=== PATIENT | male | born 1980 | race Caucasian/White ===

== ENCOUNTER 2018-03-30 22:27 | Emergency (ER) | payer OTHER, SELFPAY ==
[2018-03-30 22:29] VITALS: BP 136/89; PULSE 84; PULSE 85; RESP 17; TEMP 35.9; O2SAT 97; BMI 30.5
--- NOTE | 2018-03-30 22:40 | RAD_ITS ---
STUDY: X-RAY - RIGHT HAND REASON FOR EXAM: Male, 37 years old. Patient fell from ladder today. Second digit pain. TECHNIQUE: 3 view(s) of the hand. COMPARISON: None. FINDINGS: Normal radiocarpal articulation. Normal distal radioulnar joint. Normal visualized carpal bones. Normal carpal articulations Normal carpometacarpal articulation of the thumb. Normal second through fifth carpometacarpal joints. Normal metacarpi. Normal metacarpophalangeal joint of the thumb. Normal interphalangeal joint of the thumb. Normal proximal and distal phalanges of the thumb. Normal metacarpophalangeal joints of the second through fifth fingers. Normal proximal and distal interphalangeal joints of the second through fifth fingers. There is a nondisplaced fracture of the middle phalanx of the second finger. There is soft tissue swelling. RAD/Hand Min 3 Views IMPRESSION: Fracture of the middle phalanx of the second finger. Electronically Signed: Gianfranco Cook MD at 22:57 EDT Tel , Service support ,
--- NOTE | 2018-03-30 23:01 | ED.VISSUMM ---
- ER Visit Summary Date of Service: 03/30/18 Chief Complaint: Right hand pain History of Present Illness: The patient is a 37 M who fell off of a 6 foot ladder. He was carrying a piece of machinery when he lost his balance and fell off. He has pain to the right hand on the second finger as well as in the dorsal part of the hand. It is worse with movement. He denies any previous surgeries or fractures to that hand. He does admit to drinking 6 beers before doing this endeavor. He took no medications for this at home. His tetanus is up-to-date Physical Examination: Vital signs are reviewed. Right hand exam reveals tenderness diffusely on the second finger as well as on the metacarpal area of the second and third digit. He has an abrasion to the right thumb. He also has an abrasion to the left tib-fib area Test Results: X-rays reveal a fracture of the second middle phalanx Emergency Department Course and Treatment: Patient was given naproxen. He will be placed in an AlumaFoam splint. I will give him a couple of Melvin for home. He will ice and elevate. Follow-up with PCP Treatment Plan: [] Disposition: Discharge Impression: Right second middle phalanx fracture This note was generated with [employer] dictation software. It may contain incorrect words, spelling, and punctuation that were not noted in review of the chart prior to signing ED Disposition - Plan for ED Patient: Chief Complaint: Upper Extremity Injury Referrals: Willie Pickens MD [Primary Care Provider] -
--- NOTE | 2018-03-30 23:04 | DCINST.ED_ITS ---
ED Disposition - Plan for ED Patient: Disposition: Home or Assisted Living Chief Complaint: Upper Extremity Injury Instructions: ED Fx Finger Closed Prescriptions: Hydrocodone Bitart/Apap 5-325 [[place] 5MG-325MG] 1 tab PO Q6H PRN PRN 3 Days #8 tab PRN Reason: Pain Referrals: Willie Pickens MD [Primary Care Provider] -
[2018-03-30 23:14] VITALS: RESP 18
--- NOTE | 2018-03-30 23:14 | ED.RN ---
REVIEWED D/C INSTRUCTIONS, FOLLOW UP CARE, PRESCRIPTION, AND S/S THAT WOULD WARRANT A RETURN TO THE ED WITH PT. PT VERBALIZED AN UNDERSTANDING AND DENIES FURTHER QUESTIONS FOR THIS RN. PT SKIN P/W/D, RESP EVEN AND UNLABORED, PT A&O X 3, NO DISTRESS NOTED. PT AMBULATED OUT OF ED, GAIT STEADY.
== END 2018-03-30 23:16 | disposition home or self-care (01) ==
PROVIDERS: Emergency Provider Emergency Medicine; Family Provider Family Medicine; PCP Family Medicine
DX: S62.620A Displaced fracture of middle phalanx of right index finger, initial encounter for closed fracture (principal); Z72.0 Tobacco use; W11.XXXA Fall on and from ladder, initial encounter; Y93.89 Activity, other specified; Y92.89 Other specified places as the place of occurrence of the external cause; Y99.8 Other external cause status
CPT/HCPCS: 73130; 99282

== ENCOUNTER 2021-11-04 19:46 | Emergency (ER) | payer SELFPAY ==
[2021-11-04 19:47] VITALS: BP 172/101; PULSE 106; RESP 18; TEMP 36.4; O2SAT 97; BMI 30.1
[2021-11-04 20:24] LABS: Absolute Lymphocyte Count 2.08 X10^3/uL (0.83-4.51); Absolute Neutrophil Count 9.1 X10^3/uL (2.0-7.7); Basophil# 0.07 X10^3/uL; Basophil% 0.6 % (0-1); Eosinophil# 0.08 X10^3/uL; Eosinophils% 0.7 % (0-5); Hematocrit 43.9 % (40-54); Hemoglobin 14.8 g/dL (13.0-16.5); Lymphocyte # 2.08 X10^3/ul (0.83-4.51); Lymphocyte % 17.1 % (19-41); Mean Corp Hgb Conc 33.7 g/dL (32-36); Mean Corpuscular Hgb 30.1 pg (27.0-32.0); Mean Corpuscular Volume 89.4 fL (80-94); Mean Platelet Vol. 8.6 fl (6.2-12.0); Monocyte# 0.83 X10^3/uL; Monocyte% 6.8 % (0-10); NRBC Flagged by Analyzer 0 % (0-5); Neutrophil # 9.08 X10^3/uL (2.7-7.7); Neutrophil % 74.6 % (47-70); Platelet Count 278 K/mm3 (150-450); RBC Distribution Width CV 12.2 % (11.6-14.6); RBC Distribution Width SD 40.2 fl (35.1-43.9); Red Blood Count 4.91 M/mm3 (4.6-6.2); White Blood Count 12.2 K/mm3 (4.4-11.0)
--- NOTE | 2021-11-04 20:29 | CM.ED ---
Addendum entered by Jaymie Odonnell 11/04/21 22:22: Crisis will be called to complete MH assessment for patient. Jaymie JACKSON Original Note: Per HRO De patient has no insurance. He is from [place] and came back to [place] for his dad's . Jyamie JACKSON
[2021-11-04 20:42] LABS: ALB/GLOB Ratio 1.1 RATIO (0.9-2.4); AST(SGOT) 33 U/L (15-37); Alanine Aminotransfer ALT/SGPT 38 U/L (16-61); Albumin, Serum 4.1 g/dL (3.2-5.0); Alkaline Phosphatase 73 U/L (45-117); Anion Gap 11 (5-15); BUN 9 mg/dL (7-18); BUN/Creat Ratio 14.2 RATIO (10-20); Chloride 101 mmol/L (98-107); Creatinine, Serum 0.64 mg/dL (0.70-1.30); EST Glomerular Filtration Rate 148 mL/min (>60); Est Glom Filt Rate - Afr Amer 179 mL/min (>60); Estimated Creatinine Clearance 158.42 ml/min; Globulin 3.8 g/dL (2.2-4.2); Glucose 106 mg/dL (74-106); Potassium 3.7 mmol/L (3.5-5.1); Protein, Total 7.9 g/dL (6.4-8.2); Sodium Level 136 mmol/L (136-145)
[2021-11-04 20:46] LABS: Amphetamine Urine VISTA NEGATIVE (<1000 ng/mL); Barbiturate Urine VISTA NEGATIVE (< 200 ng/mL); Benzodiazepine Urine VISTA NEGATIVE (< 200 ng/mL); Cocaine Urine VISTA NEGATIVE (< 300 ng/mL); Ecstacy Urine VISTA NEGATIVE (< 500 ng/mL); Methadone Urine VISTA NEGATIVE (< 300 ng/mL); PCP Urine VISTA NEGATIVE (< 25 ng/mL); THC Urine VISTA POSITIVE (< 50 ng/mL); Vista UDS pH Range 5
--- NOTE | 2021-11-04 21:23 | ED.RN ---
patient had belongings locked up. envelope number # [id number]
--- NOTE | 2021-11-04 22:01 | ED.RN ---
Pt keeps yelling out of his room for the doctor. Pt getting agitated and is now requesting to leave. Pt educated that he is pink slipped. Pt becomes more angry. Pt starts calling attorneys on his phone.
--- NOTE | 2021-11-04 22:19 | ED.RN ---
Pt now on the phone with electronic tech. Pt yelling that he wants Benadryl. Requesting 100mg in a shot. Dr Hollins at bedside.
--- NOTE | 2021-11-04 22:36 | ED.RN ---
patient becoming verbally aggressive towards staff and pacing in the room. demanding to speak ot the doctor. patient advised the ER is very busy and the doctor will be in to see him as soon as possible. Nursing staff and HRO at bedside. Patient demanding to have credit out of locked belongings in order to speak to his csr. advised patient that once the items are removed from the safe the items will not be placed back in it. they will be locked int he tot is the rest of his clothing. patient demands that the items be removed. and his credit card be given to him. Patient advised that he is currently pink slipped and that legal consul will not be able to revoke the pink slip. patient still wants to speak to them. Items removed from the safe and given to patient and items placed in tot. HRO remains at the bedside. patient on the phone with csr at this time.
--- NOTE | 2021-11-04 22:38 | ED.RN ---
Pt instructed he will not get his medication or the sandwich he asked for until he is off the phone and back in bed. Pt refuses then shuts the door. Pt pacing in the room still talking on the phone.
[2021-11-04] MEDS: DiphenhydrAMINE 50 MG/ML Syringe IM (22:42)
--- NOTE | 2021-11-04 22:42 | ED.RN ---
pt now refusing the food this RN offer. Pt states i dont eat shit food you will just find me passed out in a coma.
[2021-11-05] VITALS: RESP 18
--- NOTE | 2021-11-05 00:03 | ED.RN ---
Pt keeps asking HRO to take him to [facility]. Pt explained at length that he is pink slipped to the ED and has to stay until he is legally sober to talk to a crisis counselor.
[2021-11-05] MEDS: Ziprasidone IM 20 MG/ML VIAL IM (00:14)
--- NOTE | 2021-11-05 00:15 | ED.RN ---
Pt screaming and yelling in the room i dont want to be here. Dr Hollins notified.
[2021-11-05 02:08] VITALS: RESP 16
[2021-11-05 04:50] VITALS: BP 120/86; PULSE 86; RESP 16; O2SAT 98
--- NOTE | 2021-11-05 05:28 | EDS_ITS ---
HPI History of Present Illness Chief Complaint: Suicidal Narrative Narrative: Patient is a 41-year-old male who is in town from [place]. He was brought into the hospital on a pink slip. Reportedly the patient sent a text message to his cousin which indicated that the cousin should tell his mother that she will find him [place]. Reportedly the subject left home and was unable to be located. Please were able to get the patient on the phone but he refused to give his location and at that point refused to answer questions regarding the reported text message with suicidal ideation. Eventually the subject was found at a hotel but refused to come out and also refused to answer questions still. Once police were able to reach the patient they found alcohol as well as to guns present in the room and with this reported suicidal ideation with attempt and access to weapons he was brought to the hospital for evaluation. Upon arrival to the hospital the patient is still refusing to answer questions regarding his reported suicidal ideation and exposure to weapons PFSH PFS Medical History unable to obtain unable to obtain Home Medications NK 11/04/21 [History Last Taken Unknown] Allergy/AdvReac Type Severity Reaction Status Date / Time No Known Allergies Allergy Verified 11/04/21 19:50 Surgical History unable to obtain Social History Smoking Status: Unknown if ever smoked ROS ROS ED Constitutional Constitutional ED: Denies chills or fever(s) ENT ENT ED: Denies sore throat Cardiovascular Cardiovascular: Denies chest pain Respiratory/Chest Respiratory/Chest: Denies cough or dyspnea Gastrointestinal Gastrointestinal: Denies abdominal pain, diarrhea, nausea or vomiting Genitourinary Genitourinary ED: Denies dysuria Musculoskeletal Musculoskeletal: Denies myalgias Integumentary Denies rash Neurologic Neurologic: Denies headache(s) Hematologic/Lymphatic Hematologic/Lymphatic: Denies easy bleeding or easy bruising EXAM Physical Exam Const Vital Signs: 11/04/21 19:47 11/05/21 00:00 11/05/21 02:08 Temperature 97.6 F L Temperature Source Temporal Pulse Rate 106 H Respiratory Rate 18 18 16 Blood Pressure 172/101 H Blood Pressure Mean 124 Pulse Ox 97 Oxygen Delivery Method Room Air Room Air 11/05/21 04:50 11/05/21 05:58 Temperature Temperature Source Pulse Rate 86 Respiratory Rate 16 14 Blood Pressure 120/86 H Blood Pressure Mean 97 Pulse Ox 98 Oxygen Delivery Method Room Air Positive well nourished and well developed General Appearance ED: well developed Eyes PERRL and EOMs intact bilaterally Neck supple Resp normal respiratory effort and clear to auscultation bilaterally Cardio regular rate and regular rhythm GI non-tender and non-distended Auscultation: normoactive bowel sounds Palpation: soft Extremity normal to inspection Neuro oriented x3 and CN's II-XII intact bilaterally Sensorium / Orientation: alert Psych mental status grossly normal Psych Narrative: Patient has a confrontational affect Skin no rashes or lesions noted MDM MDM MDM Narrative Medical decision making narrative: Patient presented to the ER awake and afebrile but was hypertensive and tachycardic most likely related to stress and anxiety. He is refusing to answer questions regarding the reported text message and access to guns. With the report from police and family basic blood work was obtained for psychiatric screening. Blood work revealed positive marijuana and elevated alcohol consistent with his history but otherwise no clinically significant findings. Based on the patient's pink slip as well as reported suicidal ideation with access to weapons he was watched in the ER and his alcohol level was rechecked and is now 49. At this time he is legally and medically sober and therefore will need to be evaluated by crisis center/social work because of the suicidal ideation. The patient was evaluated by crisis center now that he is legally and medically sober. He is denying any type of homicidal or suicidal ideation and states that his tax was misinterpreted. He also reports that his guns have been taken by police and he no longer has access to weapons. Therefore at this time as the reported/alleged suicidal ideation occurred while the patient was intoxicated and now he is sober and denying any type of homicidal or suicidal ideation I do not have grounds for placement and patient will be discharged at this time. Lab Data Attestation: I reviewed the patient's lab results. Labs: Laboratory Results - last 24 hr 11/04/21 11/04/21 11/04/21 19:57 20:15 20:15 WBC 12.2 H RBC 4.91 Hgb 14.8 Hct 43.9 MCV 89.4 MCH 30.1 MCHC 33.7 RDW Std Deviation 40.2 RDW Coeff of Joseph 12.2 Plt Count 278 MPV 8.6 Immature Gran % (Auto) 0.200 Neut % (Auto) 74.6 H Lymph % (Auto) 17.1 L [place] % (Auto) 6.8 Eos % (Auto) 0.7 Baso % (Auto) 0.6 Absolute Neuts (auto) 9.1 H Absolute Lymphs (auto) 2.08 Nucleated RBC % 0 Sodium 136 Potassium 3.7 Chloride 101 Carbon Dioxide 24.0 Anion Gap 11 BUN 9 Creatinine 0.64 L Estim Creat Clear Calc 158.42 Est GFR (MDRD) Af Amer 179 Est GFR (MDRD) Non-Af 148 BUN/Creatinine Ratio 14.2 Glucose 106 Calcium 9.0 Total Bilirubin 0.30 AST 33 ALT 38 Alkaline Phosphatase 73 Total Protein 7.9 Albumin 4.1 Globulin 3.8 Albumin/Globulin Ratio 1.1 Urine Opiates Screen NEGATIVE Urine Methadone Screen NEGATIVE Ur Barbiturates Screen NEGATIVE Ur Phencyclidine Scrn NEGATIVE Ur Amphetamines Screen NEGATIVE U Methamphetamin-MDMA NEGATIVE U Benzodiazepines Scrn NEGATIVE Urine Cocaine Screen NEGATIVE U Cannabinoids Screen POSITIVE H Ur Drug Screen Comment Ethyl Alcohol 11/04/21 11/05/21 20:15 04:20 WBC RBC Hgb Hct MCV MCH MCHC RDW Std Deviation RDW Coeff of Joseph Plt Count MPV Immature Gran % (Auto) Neut % (Auto) Lymph % (Auto) Mer[place]ether % (Auto) Eos % (Auto) Baso % (Auto) Absolute Neuts (auto) Absolute Lymphs (auto) Nucleated RBC % Sodium Potassium Chloride Carbon Dioxide Anion Gap BUN Creatinine Estim Creat Clear Calc Est GFR (MDRD) Af Amer Est GFR (MDRD) Non-Af BUN/Creatinine Ratio Glucose Calcium Total Bilirubin AST ALT Alkaline Phosphatase Total Protein Albumin Globulin Albumin/Globulin Ratio Urine Opiates Screen Urine Methadone Screen Ur Barbiturates Screen Ur Phencyclidine Scrn Ur Amphetamines Screen U Methamphetamin-MDMA U Benzodiazepines Scrn Urine Cocaine Screen U Cannabinoids Screen Ur Drug Screen Comment Ethyl Alcohol 245.0 49.0 Discharge Plan Triage Chief Complaint: Suicidal ED Provider: Elvis Hollins Dx/Rx/DC Orders Clinical Impression: Depression, Alcohol intoxication Instructions: Depression: Tips to Help Yourself, ED Alcohol Intoxication Prescriptions: No Action NK RF: 0 Primary Care Provider: Care Physician,No Primary Referrals: Jeanette Ronquillo MD [STAFF PHYSICIAN] - 5-7 Days Care Physician,No Primary [Primary Care Provider] - Disposition Disposition: Home, Self Care
--- NOTE | 2021-11-05 05:39 | ED.RN ---
[facility]IS[facility] WAS CALLED FOR THE PATIENT, AND PAPERWORK WAS FAXED OVER TO [facility]
[2021-11-05 05:58] VITALS: RESP 14
[2021-11-05 08:20] VITALS: BP 170/68; PULSE 78; RESP 18; O2SAT 98
== END 2021-11-05 08:22 | disposition home or self-care (01) ==
PROVIDERS: Emergency Provider Emergency Medicine
DX: F32.A Depression, unspecified (principal); F10.129 Alcohol abuse with intoxication, unspecified; Y90.2 Blood alcohol level of 40-59 mg/100 ml
CPT/HCPCS: 36415; 80053; 80307; 82077; 85025; 87426; 96372; 99283; J3486